=== PATIENT | male | born 1975 | race Caucasian/White ===

== ENCOUNTER 2019-12-12 14:45 | Inpatient (IN) ==
[2019-12-12 15:20] LABS: Basophils # 0.1 10*3/uL (0.0-0.2); Basophils % 0.4 % (0.0-0.8); Eosinophils % 0.2 % (0.00-10.9); Hematocrit 52.2 VOL% (42.0-52.0); Hemoglobin 17.9 GM/DL (14.0-18.0); Immature Granulocytes % 0.7 %; Immature Granulocytes Absolute 0.15 #; Lymphocytes # 2.6 10*3/uL (1.4-4.0); Lymphocytes % 11.7 % (21.2-54.2); Mean Corpuscular HGB Conc 34.3 GM/DL (32-36); Mean Corpuscular Volume 83.4 FL (87-102); Mean Platelet Volume 10.1 FL (9.6-12.0); Monocytes % 6.3 % (1.7-12.7); Neutrophils % 80.7 % (38.7-73.9); Platelet Count 364 T/CUMM (130-400); Red Blood Count 6.26 MC/CUMM (3.8-5.5); Red Cell Distribution Width 12.8 % (9.3-17.3); White Blood Count 21.9 T/CUMM (4-12)
[2019-12-12] MEDS ORDERED: LACTATED RINGERS 1,000 ML IV ONE (15:32)
[2019-12-12 15:38] LABS: Albumin 4.5 G/DL (3.4-5.0); Bilirubin,Total 0.7 MG/DL (0.2-1.0); Calcium 10.4 MG/DL (8.5-10.1); Osmolality,Calculated 277.1 MOS/KG (273-304); Total Protein 8.7 G/DL (6.4-8.3)
[2019-12-12 15:48] LABS: Lymphocytes 14 % (20-55); Platelet Estimate Normal; Reactive Lymphocytes Slight; Segmented Neutrophils 80 % (50-85); Total Cells Counted 100
[2019-12-12] MEDS ORDERED: GLUCAGON 1 MG VIAL IM PRN ×2 (17:12)
[2019-12-12] MEDS ORDERED: NICOTINE 21 MG/24 HR PATCH TRANSDERM PRN (17:12)
[2019-12-12] MEDS ORDERED: hydrALAZINE 20 MG/1 ML VIAL IV PRN (17:12)
[2019-12-12] MEDS ORDERED: guaiFENesin/DM ER 600-30 MG TABLET PO PRN (17:12)
[2019-12-12] MEDS ORDERED: ACETAMINOPHEN 325 MG TABLET PO PRN (17:12)
[2019-12-12] MEDS ORDERED: ONDANSETRON 4 MG/2 ML VIAL IV PRN (17:12)
[2019-12-12] MEDS ORDERED: diphenhydrAMINE CAP 25 MG CAPSULE PO PRN (17:12)
[2019-12-12] MEDS ORDERED: DEXTROSE 50% 25 GM/50 ML VIAL IV PRN ×2 (17:12)
[2019-12-12] MEDS ORDERED: ZALEPLON 5 MG CAPSULE PO PRN (17:12)
[2019-12-12 17:14] LABS: Ferritin 181.5 ng/ml (26-388)
[2019-12-12] MEDS ORDERED: TICAGRELOR 90 MG TABLET PO ONE (17:22)
[2019-12-12] MEDS ORDERED: ENOXAPARIN 120 MG/0.8 ML SYRINGE SUBCUT SCH (17:30)
[2019-12-12] MEDS ORDERED: NITROGLYCERIN SL 0.4 MG TABLET SL ONE (17:35)
[2019-12-12] MEDS ORDERED: ENOXAPARIN 120 MG/0.8 ML SYRINGE SUBCUT ONE (20:00)
[2019-12-12] MEDS ORDERED: ASPIRIN EC 325 MG TABLET PO ONE (20:00)
[2019-12-12] MEDS: ATORVASTATIN 40 MG TABLET PO SCH (20:29)
[2019-12-12] MEDS: DOCUSATE SODIUM 100 MG CAPSULE PO SCH (20:30)
[2019-12-12] MEDS: PIPERACILLIN/TAZOBACTAM 3,375 MG in SODIUM CHLORIDE 0.9% 100 ML IV SCH (20:31)
[2019-12-12] MEDS: INSULIN LISPRO 100 UNIT/ML SUBCUT SCH (20:38)
[2019-12-12] MEDS: MORPHINE 4 MG/1 ML VIAL IV PRN (21:46)
[2019-12-12 23:53] LABS: CKMB % 1.6 %
[2019-12-12 23:59] LABS: Troponin I 1.17 NG/ML (0.00-0.045)
[2019-12-13] MEDS: AZITHROMYCIN INJ 500 MG in SODIUM CHLORIDE 0.9% 250 ML IV SCH (00:02)
[2019-12-13] MEDS ORDERED: VANCOMYCIN INJ 1,750 MG in SODIUM CHLORIDE 0.9% 500 ML IV SCH (01:00)
[2019-12-13] MEDS: MORPHINE 4 MG/1 ML VIAL IV PRN ×2 (02:33→21:05)
[2019-12-13] MEDS: PIPERACILLIN/TAZOBACTAM 3,375 MG in SODIUM CHLORIDE 0.9% 100 ML IV SCH ×3 (04:46→21:07)
[2019-12-13 06:58] LABS: Apearance,Urine CLEAR (Clear); Bilirubin,Urine Negative (Negative); Blood, Urine Negative (Negative); Glucose,Urine (UA) Negative (Negative); Ketones,Urine Negative (Negative); Mucus,Urine Occasional /LPF (Occasional); Nitrite,Urine Negative (Negative); Protein,Urine Negative; RBC,Urine 4 /HPF (0-4); Squamous Epithelial Cell,Urine Occasional /HPF (0-10); Urine Color Yellow (Yellow); Urine Specific Gravity 1.034 (1.001-1.035); Urine Urobilinogen < 2.0 EU/DL (0.2-1.0); WBC,Urine <1 /HPF (0-6)
[2019-12-13 06:58] LABS: Basophils # 0.1 10*3/uL (0.0-0.2); Basophils % 0.5 % (0.0-0.8); Eosinophils # 0.3 10*3/uL (0.0-0.87); Eosinophils % 2.4 % (0.00-10.9); Hematocrit 47.1 VOL% (42.0-52.0); Immature Granulocytes % 0.6 %; Immature Granulocytes Absolute 0.07 #; Lymphocytes # 2.5 10*3/uL (1.4-4.0); Mean Platelet Volume 10.1 FL (9.6-12.0); Monocytes % 8.4 % (1.7-12.7); Neutrophils % 67.1 % (38.7-73.9); Red Blood Count 5.61 MC/CUMM (3.8-5.5)
[2019-12-13 07:00] LABS: Platelet Count 270 T/CUMM (130-400); White Blood Count 11.9 T/CUMM (4-12)
[2019-12-13 07:16] LABS: Albumin 3.5 G/DL (3.4-5.0); Bilirubin,Total 1.9 MG/DL (0.2-1.0); Calcium 8.8 MG/DL (8.5-10.1); Osmolality,Calculated 279.5 MOS/KG (273-304); Risk Ratio 4.25; Total Protein 7.3 G/DL (6.4-8.3); VLDL CHOLESTEROL 23.8 MG/DL
[2019-12-13 07:28] LABS: Troponin I 0.976 NG/ML (0.00-0.045)
[2019-12-13] MEDS: INSULIN LISPRO 100 UNIT/ML SUBCUT SCH ×4 (07:51→21:08)
[2019-12-13] MEDS: PANTOPRAZOLE 40 MG TABLET PO SCH (08:45)
[2019-12-13] MEDS: TICAGRELOR 90 MG TABLET PO SCH ×2 (08:45→21:07)
[2019-12-13] MEDS: ASPIRIN EC 81 MG TABLET PO SCH (08:45)
[2019-12-13] MEDS: DOCUSATE SODIUM 100 MG CAPSULE PO SCH ×2 (08:45→20:45)
[2019-12-13] MEDS ORDERED: ATORVASTATIN 10 MG TABLET PO SCH (09:00)
[2019-12-13] MEDS ORDERED: ASPIRIN 325 MG TABLET PO SCH (09:00)
[2019-12-13 12:03] LABS: Troponin I 0.808 NG/ML (0.00-0.045)
[2019-12-13] MEDS ORDERED: POTASSIUM CHLORIDE RIDER 10 MEQ in PREMIX 1 EACH IV PRN (13:35)
[2019-12-13] MEDS ORDERED: MAGNESIUM SULF RIDER 2 GM in PREMIX 1 EACH IV PRN (13:35)
[2019-12-13] MEDS: SODIUM CHLORIDE 0.9% 1,000 ML IV SCH (14:26)
[2019-12-13] MEDS: VANCOMYCIN INJ 1,750 MG in SODIUM CHLORIDE 0.9% 500 ML IV SCH (16:28)
[2019-12-13] MEDS ORDERED: FEXOFENADINE 60 MG TABLET PO PRN (16:46)
[2019-12-13 17:22] LABS: Troponin I 0.705 NG/ML (0.00-0.045)
[2019-12-13] MEDS ORDERED: ENOXAPARIN 120 MG/0.8 ML SYRINGE SUBCUT SCH (21:00)
[2019-12-13] MEDS: ATORVASTATIN 40 MG TABLET PO SCH (21:07)
[2019-12-13 22:09] LABS: Barbiturates Screen,Urine Negative (Negative); Benzodiazepines Screen,Urine Negative (Negative); Cannabinoid Screen,Urine Negative (Negative); Opiate Screen,Urine Positive (Negative); Phencyclidine Screen,Urine Negative (Negative)
[2019-12-14] MEDS: MORPHINE 4 MG/1 ML VIAL IV PRN ×2 (00:10→19:34)
[2019-12-14] MEDS: AZITHROMYCIN INJ 500 MG in SODIUM CHLORIDE 0.9% 250 ML IV SCH (00:54)
[2019-12-14] MEDS: PIPERACILLIN/TAZOBACTAM 3,375 MG in SODIUM CHLORIDE 0.9% 100 ML IV SCH (03:40)
[2019-12-14 04:00] LABS: Basophils # 0.1 10*3/uL (0.0-0.2); Basophils % 0.6 % (0.0-0.8); Eosinophils # 0.4 10*3/uL (0.0-0.87); Eosinophils % 3.1 % (0.00-10.9); Hematocrit 44.3 VOL% (42.0-52.0); Hemoglobin 14.8 GM/DL (14.0-18.0); Immature Granulocytes % 0.4 %; Immature Granulocytes Absolute 0.05 #; Lymphocytes # 2.6 10*3/uL (1.4-4.0); Lymphocytes % 21.7 % (21.2-54.2); Mean Corpuscular HGB Conc 33.4 GM/DL (32-36); Mean Corpuscular Volume 84.4 FL (87-102); Mean Platelet Volume 10.1 FL (9.6-12.0); Monocytes % 10.8 % (1.7-12.7); Neutrophils % 63.4 % (38.7-73.9); Platelet Count 248 T/CUMM (130-400); Red Blood Count 5.25 MC/CUMM (3.8-5.5); Red Cell Distribution Width 12.9 % (9.3-17.3); White Blood Count 11.9 T/CUMM (4-12)
[2019-12-14 04:29] LABS: Calcium 8.8 MG/DL (8.5-10.1); Osmolality,Calculated 280.4 MOS/KG (273-304)
[2019-12-14 05:00] LABS: PT Patient Result 10.3 SECS (9.8-11.9)
[2019-12-14] MEDS ORDERED: DIAZEPAM 5 MG TABLET PO ONE (06:00)
[2019-12-14] MEDS ORDERED: LIDOCAINE 1%/EPI INJ 20 ML VIAL ONE (07:22)
[2019-12-14] MEDS ORDERED: HEPARIN/NACL 0.9% 2 UNITS/ML 1,000 ML IV ONE (07:22)
[2019-12-14] MEDS ORDERED: fentaNYL 100 MCG/2 ML VIAL ONE (07:31)
[2019-12-14] MEDS ORDERED: MIDAZOLAM 2 MG/2 ML VIAL ONE (07:31)
[2019-12-14] MEDS: PANTOPRAZOLE 40 MG TABLET PO SCH ×2 (07:48→09:51)
[2019-12-14] MEDS: TICAGRELOR 90 MG TABLET PO SCH ×3 (07:48→20:50)
[2019-12-14] MEDS: VANCOMYCIN INJ 1,750 MG in SODIUM CHLORIDE 0.9% 500 ML IV SCH (07:56)
[2019-12-14] MEDS: INSULIN LISPRO 100 UNIT/ML SUBCUT SCH ×4 (09:38→20:49)
[2019-12-14] MEDS: ASPIRIN EC 81 MG TABLET PO SCH (09:50)
[2019-12-14] MEDS: DOCUSATE SODIUM 100 MG CAPSULE PO SCH ×2 (09:51→20:49)
[2019-12-14] MEDS: SODIUM CHLORIDE 0.9% 1,000 ML IV SCH (11:33)
[2019-12-14] MEDS ORDERED: lisinopriL 10 MG TABLET PO ONE (14:52)
[2019-12-14] MEDS: ATORVASTATIN 40 MG TABLET PO SCH (20:49)
[2019-12-15 00:13] VITALS: BP 101/61
[2019-12-15] MEDS: MORPHINE 4 MG/1 ML VIAL IV PRN ×2 (00:38→04:18)
[2019-12-15 05:33] LABS: Calcium 9.2 MG/DL (8.5-10.1); Osmolality,Calculated 279.4 MOS/KG (273-304)
[2019-12-15] MEDS: PANTOPRAZOLE 40 MG TABLET PO SCH (08:28)
[2019-12-15] MEDS: ASPIRIN EC 81 MG TABLET PO SCH (08:28)
[2019-12-15] MEDS: DOCUSATE SODIUM 100 MG CAPSULE PO SCH (08:28)
[2019-12-15] MEDS: TICAGRELOR 90 MG TABLET PO SCH (08:29)
[2019-12-15] MEDS: INSULIN LISPRO 100 UNIT/ML SUBCUT SCH ×2 (08:34→12:44)
[2019-12-15] MEDS ORDERED: lisinopriL 10 MG TABLET PO SCH (09:00)
[2019-12-15] MEDS ORDERED: AZITHROMYCIN 250 MG TABLET PO SCH (09:00)
== END 2019-12-15 12:48 | disposition home or self-care (01) | DRG 281 ==
LOC: N.ED 14:45 → N.TELES 17:11 → N.EDINP 17:12 → N.2E 17:40 → N.TELES 21:37
PROVIDERS: ADMIT Internal Medicine; ATTEND Internal Medicine
PROC: CLCCHCL (ICD-10-PCS; 2019-12-14 08:15)